=== PATIENT | female | born 1980 | race Caucasian/White ===

== ENCOUNTER 2019-07-23 14:41 | Emergency (ER) | payer OTHER ==
[~2019-07-23] VITALS: Ht 170.2 cm; Wt 77.1 kg
[2019-07-23 15:06] VITALS: BP 142/86
[2019-07-23] MEDS ORDERED: ORPH100T PO (15:37)
[2019-07-23] MEDS ORDERED: IBUP-1027 PO (15:37)
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
== END 2019-07-23 15:53 | disposition home or self-care (01) ==
LOC: ER 14:41
DX: R51 Headache (principal); M79.605 Pain in left leg; G89.11 Acute pain due to trauma; V49.9XXA Car occupant (driver) (passenger) injured in unspecified traffic accident, initial encounter; Y93.89 Activity, other specified; Y92.488 Other paved roadways as the place of occurrence of the external cause; Y99.8 Other external cause status
CPT/HCPCS: 99283